=== PATIENT | female | born 1985 | race Caucasian/White ===

== ENCOUNTER 2017-11-21 23:32 | Emergency (ER) | payer OTHER ==
[2017-11-21 23:32] VITALS: BMI 25.1
[2017-11-21 23:50] VITALS: RESP 18; TEMP 98.7
--- NOTE | 2017-11-22 01:01 | C.PDOC ---
History Of Present Illness 32 year old female presents to the ER with a complaint of nausea. Patient reports her menstrual period is 8 days late. Denies vomiting diarrhea, fever, or chills. Time Seen by Provider: 11/21/17 23:54 Chief Complaint (Nursing): Medical Clearance History Per: Patient History/Exam Limitations: no limitations Onset/Duration Of Symptoms: Days Current Symptoms Are (Timing): Still Present Recent travel outside of the [place]: No Past Medical History Reviewed: Historical Data, Nursing Documentation, Vital Signs Vital Signs: Last Vital Signs Temp 98.7 F 11/22/17 01:03 Pulse 64 11/22/17 01:03 Resp 18 11/22/17 01:03 BP 120/68 11/22/17 01:03 Pulse Ox 98 11/22/17 01:03 - Medical History PMH: No Chronic Diseases - [facility] Procedures CERVICAL LES CAUTERIZAT (03/14/15) Family History: States: Unknown Family Hx - Social History Hx Tobacco Use: No Hx Alcohol Use: Yes Hx Substance Use: No - Immunization History Hx Tetanus Toxoid Vaccination: No Hx Influenza Vaccination: No Hx Pneumococcal Vaccination: No Review Of Systems Constitutional: Negative for: Fever, Chills Gastrointestinal: Positive for: Nausea. Negative for: Vomiting, Abdominal Pain , Diarrhea Physical Exam - Physical Exam Appears: Non-toxic, No Acute Distress Skin: Normal Color, Warm, Dry Head: Atraumatic, Normacephalic Eye(s): bilateral: Normal Inspection Oral Mucosa: Moist Chest: Symmetrical, No Tenderness Cardiovascular: Rhythm Regular Respiratory: Normal Breath Sounds, No Rales, No Rhonchi, No Wheezing Gastrointestinal/Abdominal: Soft, No Tenderness Neurological/Psych: Oriented x3, Normal Speech ED Course And Treatment O2 Sat by Pulse Oximetry: 99 (room air) Pulse Ox Interpretation: Normal Progress Note: POC ordered, results were negative. Patient discharged with instructions to follow up with PMD. Disposition - Disposition Disposition: HOME/ ROUTINE Disposition Time: 00:59 Condition: STABLE Additional Instructions: Follow up with PMD within 1-2 days. Return to ED if feel worse. Prescriptions: Ondansetron ODT [Zofran ODT] 4 mg PO .Q4-6H PRN #20 odt PRN Reason: Nausea/Vomiting Forms: [facility] [employer] [facility] (Croatian), General Discharge Instructions - Clinical Impression Clinical Impression: Nausea - PA / APPOINTMENT SCHEDULER / Resident Statement MD/DO has reviewed & agrees with the documentation as recorded. - Scribe Statement The provider has reviewed the documentation as recorded by the Scribboni Phelan All medical record entries made by the Manishaibboni were at my direction and personally dictated by me. I have reviewed the chart and agree that the record accurately reflects my personal performance of the history, physical exam, medical decision making, and the department course for this patient. I have also personally directed, reviewed, and agree with the discharge instructions and disposition.
[2017-11-22 01:05] VITALS: BP 120/68; PULSE 64
[2017-11-22 02:44] VITALS: O2SAT 99
== END 2017-11-22 01:05 | disposition home or self-care (01) ==
LOC: C.ER 23:32
DX: R11.0 Nausea (principal)